=== PATIENT | female | born 1950 | race Two or more races ===

== ENCOUNTER 2018-12-24 13:57 | Inpatient (IN) | payer OTHER ==
[~2018-12-24] VITALS: Ht 165.1 cm; Wt 63.5 kg
[~2018-12-24 13:57] MED LIST: INTESTINEX1 CAP PO; LIPITOR20 MG; LISINOPRIL20 MG; PROTONIX40 MG; PROTONIX40 MG PO; SYNTHROID50 MCG; ZANTAC150 MG PO
--- NOTE | 2018-12-24 14:59 | NUR ---
SE RECIBE PACIENTE EN UNIDAD DE CUIDADO CRITICO PROCEDENTE DE SISTEMA DE EMERGENCIAS MEDICA.EN GILLIAN,DESPIRTA ALERTA Y ORIENTADA.PACIENTE Y FAMILIAR REFIEREN QUE EN RESULTADO DE MUESTRA DE LAM TOMADA EN EL HALIMA DE HOY LE INDICARON QUE ESTABA EN 5 MG.
--- NOTE | 2018-12-24 15:50 | NUR ---
SE RECIBE PTE ALERTA Y ORIENTADA X3 EN GILLIAN #2 DE UNIDAD E CRITICO. PTE SE OBSERVA EN GILLIAN CON BARANDAS ELEVADAS AL MOMENTO. PTE SE OBSERVA CONECTADA A MONITOR CARDIACO CON OXIMETRIA DE PULSO. PTE CON H/L X2 EN BARAZO ROMIE LOS CUALES SE ENCUENTRAN PATENTES, LIBRES DE EDEMA Y ENROJECIMIENTO. SE MIDEN S/V A PTE LOS CUAULES SE DOCUMENTAN. SE COLOCAN MEDICAMENTOS A PTE LOS CUALES TOLERA. PTE EN ESPERA DE CONSULTA CON MEDICINA INTERNA POR ANEMIA Y GI BLEEDING. SE COLOCA CN A 3LTS A PTE. SE ORDENAN 4 UNIDADES DE PRBC FRACC. A PTE. SE DANE TUBOS PILOTOS A PTE Y SE LLEVAN A BANCO DE LAM POR MR. MACIAS. PTE SE CONTINUA MONITORIANDO POR CAMBIOS EN SANCHEZ CONDICION ACTUAL.
== END 2018-12-28 10:21 | disposition home or self-care (01) | DRG 811 ==
LOC: ER 13:57 → EDBD 14:16 → ER 14:16 → MEDJ 19:32
PROVIDERS: ADMIT Internal Medicine Cardiovascular Disease
PROC: 30233N1 Transfusion of Nonautologous Red Blood Cells into Peripheral Vein, Percutaneous Approach (ICD-10-PCS; principal; 2018-12-24)
DX: D50.0 Iron deficiency anemia secondary to blood loss (chronic) (principal); K29.61 Other gastritis with bleeding; K25.0 Acute gastric ulcer with hemorrhage; E86.0 Dehydration; K52.89 Other specified noninfective gastroenteritis and colitis

== ENCOUNTER 2020-08-13 13:53 | Inpatient (IN) | payer OTHER ==
[~2020-08-13] VITALS: Ht 157.5 cm; Wt 56.7 kg
[2020-08-13] MEDS ORDERED: NORVASC2.5 M1 PO (14:05)
[2020-08-13] MEDS ORDERED: LOSARTAN POTASS50 MG PO (14:05)
[2020-08-13] MEDS ORDERED: SYNTHROID50 MCG PO (14:05)
== END 2020-08-19 17:32 | disposition home or self-care (01) | DRG 378 ==
LOC: ER 13:53 → SURH 18:47
PROVIDERS: ADMIT Internal Medicine Cardiovascular Disease; ATTEND Internal Medicine Cardiovascular Disease
PROC: 30233N1 Transfusion of Nonautologous Red Blood Cells into Peripheral Vein, Percutaneous Approach (ICD-10-PCS; principal; 2020-08-13)
DX: K92.1 Melena (principal); D62 Acute posthemorrhagic anemia; K29.70 Gastritis, unspecified, without bleeding; K25.3 Acute gastric ulcer without hemorrhage or perforation; R11.2 Nausea with vomiting, unspecified; K52.9 Noninfective gastroenteritis and colitis, unspecified; E86.0 Dehydration; D64.9 Anemia, unspecified; Z20.828 Contact with and (suspected) exposure to other viral communicable diseases

== ENCOUNTER 2020-08-21 04:40 | Inpatient (IN) | payer OTHER ==
[~2020-08-21] VITALS: Ht 157.5 cm; Wt 63.0 kg
[~2020-08-21 04:40] MED LIST changes: +LOSARTAN POTASS50 MG PO; +NORVASC2.5 M1 PO; +SYNTHROID50 MCG PO
--- NOTE | 2020-08-21 04:49 | NUR ---
PACIENTE ALERTA Y ORIENTADA EN ALYSSA MALINI ESFERAS, REFIERE YANIQUE PRESENTANDO 3 VOMITOS COLOR ALEYDA, "DELANEY SI FUERA MOE Y SIENTO UN SABOR A LAM EN LA BOCA". TAMBIEN REFIERE DOLOR EN EL ESTOMAGO. PACIENTE FUE ADMITIDA POR DR CHRISTIAN EL Jul CON DX DE UGIB Y ANEMIA Y RANDALL DE JEANNINE EL Jul.
--- NOTE | 2020-08-21 05:49 | NUR ---
PTE EVALUADA POR EL DR DEISY ISLAS [place] EL [place]. MS K GASTON ORIENTA SOBRE EL MISMO, LO CUAL REFIERE ENTENDER, REALIZA PRUEBAS DE LABORATORIO, INCLUYENDO TUBOS PILOTOS PARA 2 U DE PRBC Y ADMINISTRA MEDICAMENTOS PETRA ORDEN MEDICA Y SIGUIENDO MEDIDAS ASEPTICAS. PTE YA CANALIZADA EN ANTEBRAZO LT PREVIAMENTE, EL MISMO PATENTE CON FECHA DE 08/18/20. PTE FRIMA CONSENTIMIENTO PARA TRANBSFUSION DE LAM.
--- NOTE | 2020-08-21 06:09 | NUR ---
SE NOTIFICA A MS MEADOWS PERSONAL DE SEVICIOS MUTUOS DE BANCO DE LAM PARA RECOGER TUBOS PILOTOS PARA 2 U DE PRBC, TUBOS PILOTOS LLEVADOS AL LABORATORIO.
--- NOTE | 2020-08-21 06:46 | NUR ---
SE NOTIFICA A DORI, PERSONAL DE SERVICIOS MUTUOS DE BANCO DE LAM PARA COLOCAR 2 U DE PRBC EN HOLD.
--- NOTE | 2020-08-21 07:00 | NUR ---
PACIENTE FEMINA ALERTA ORIENTADA DEVIDAMENTE IDENTIFICADA EN COMPANIA DE FAMILIAR. AREA DE VENOPUNCION KRISTINA DE EDEMA Y ERITEMA AL MOMENTO. AL MOMENTO TOLERANDO EL TRATAMIENTO. SE RE ORIENTA SOBRE EL PROCESO DE CONSULTA CON MEDICINA INTERNA LA MISMA REFIERE ENTENDER. SE CHELY PRIVACIDAD Y SEGURIDAD EN TODO MOMENTO. DOS UNIDADES DE PRBC EN HOLD. HGB 12.5.
== END 2020-09-01 10:50 | disposition home or self-care (01) | DRG 378 ==
LOC: ER 04:40 → MEDI 08:36
PROVIDERS: ADMIT Internal Medicine Cardiovascular Disease; ATTEND Internal Medicine Cardiovascular Disease
DX: K92.0 Hematemesis (principal); D62 Acute posthemorrhagic anemia; E86.0 Dehydration

== ENCOUNTER 2020-12-14 07:16 | Emergency (ER) | payer OTHER ==
[~2020-12-14] VITALS: Ht 162.6 cm; Wt 55.3 kg
[2020-12-14] MEDS ORDERED: PEPCID AC20 MG (07:28)
[2020-12-14] MEDS ORDERED: PROTONIX40 MG (07:29)
== END 2020-12-14 15:59 | disposition home or self-care (01) ==
LOC: ER 07:16
DX: K52.89 Other specified noninfective gastroenteritis and colitis (principal); K57.30 Diverticulosis of large intestine without perforation or abscess without bleeding; N20.0 Calculus of kidney

== ENCOUNTER 2022-09-16 12:13 | Emergency (ER) | payer OTHER ==
[~2022-09-16] VITALS: Ht 162.6 cm; Wt 49.0 kg
[~2022-09-16 12:13] MED LIST changes: +PEPCID AC20 MG
[2022-09-16] MEDS ORDERED: ENTRESTO 24 MG1 EACH PO (12:50)
[2022-09-16] MEDS ORDERED: CARVEDILOL3.125 M1 PO (12:50)
== END 2022-09-16 18:47 | disposition home or self-care (01) ==
LOC: ER 12:13
DX: S52.591A Other fractures of lower end of right radius, initial encounter for closed fracture (principal); W19.XXXA Unspecified fall, initial encounter; Z91.81 History of falling; Y93.9 Activity, unspecified; Y92.009 Unspecified place in unspecified non-institutional (private) residence as the place of occurrence of the external cause; Z88.8 Allergy status to other drugs, medicaments and biological substances

== ENCOUNTER → 2023-02-20 | Outpatient (CLI) | payer OTHER ==
[~2023-02-20] MED LIST changes: +CARVEDILOL3.125 M1 PO; +ENTRESTO 24 MG1 EACH PO
== END | disposition home or self-care (01) ==
LOC: SONOGRAMA 08:11
PROVIDERS: ATTEND Internal Medicine
DX: K76.89 Other specified diseases of liver (principal)

== ENCOUNTER 2023-04-02 20:39 | Emergency (ER) | payer OTHER ==
[~2023-04-02] VITALS: Ht 162.6 cm; Wt 54.4 kg
[2023-04-02] MEDS ORDERED: PROTONIX20 MG PO (21:17)
[2023-04-02] MEDS ORDERED: ANTIBIOTICO (21:18)
== END 2023-04-02 23:50 | disposition home or self-care (01) ==
LOC: ER 20:39
DX: R60.0 Localized edema (principal); F41.9 Anxiety disorder, unspecified